=== PATIENT | female | born 1940 | race Caucasian/White ===

== ENCOUNTER 2022-04-29 18:32 | Emergency (ER) | payer MEDICARE ==
[2022-04-29] MEDS ORDERED: Sodium Chloride 0.9% 10 ML Syringe FLUSH PRN (19:04)
[2022-04-29] MEDS ORDERED: Sodium Chloride 0.9% 1,000 ML IV ONE (19:04)
[2022-04-29] MEDS ORDERED: Albuterol/Ipratropium 3.0-0.5 MG/3 ML Neb Soln NEB ONE (19:08)
[2022-04-29 19:42] LABS: CORONAVIRUS COVID-19 NAA NEGATIVE (NEGATIVE)
[2022-04-29] MEDS ORDERED: Iopamidol 612 MG/ML 100 ML Bottle IVPUSH ONE (21:22)
[2022-04-29] MEDS ORDERED: cefTRIAXone 1 GM in Sodium Chloride 0.9% 100 ML IV STA (22:29)
[2022-04-29] MEDS ORDERED: Azithromycin 500 MG in Sodium Chloride 0.9% 250 ML IV STA (22:30)
== END 2022-04-30 12:55 ==
LOC: JD.ED 18:32
DX: J18.9 Pneumonia, unspecified organism (principal); Z88.5 Allergy status to narcotic agent; Z88.6 Allergy status to analgesic agent; Z79.899 Other long term (current) drug therapy; Z20.822 Contact with and (suspected) exposure to COVID-19
CPT/HCPCS: 0241U; 36415; 71045; 71275; 80053; 81001; 83605; 83735; 83880; 84145; 84484; 85007; 85027; 85379; 85610; 85730; 86140; 87040; 93005; 94640; 96361; 96365; 96367; 99285; J0456; J0696; J3490; J7030; J7050; Q9967; J7620-GY

== ENCOUNTER 2023-02-24 11:30 | Inpatient (IN) | payer MEDICARE, OTHER ==
[2023-02-24] MEDS ORDERED: Albuterol/Ipratropium 3.0-0.5 MG/3 ML Neb Soln NEB ONE (12:02)
[2023-02-24] MEDS ORDERED: Sodium Chloride 0.9% 10 ML Syringe FLUSH PRN (12:02)
[2023-02-24 12:49] LABS: BASOPHILS ABSOLUTE AUTO 0.1 K/mm3 (0.0-0.2); BASOPHILS PERCENT AUTO 0.5 % (0.0-1.0); EOSINOPHILS PERCENT AUTO 0.1 % (0.0-6.0); HEMATOCRIT 38.8 % (37.0-47.0); HEMOGLOBIN 12.2 gm/dl (12.0-16.0); IMMATURE GRAN ABSOLUTE AUTO 0.09 K/mm3 (0.00-0.05); IMMATURE GRAN PERCENT AUTO 0.6 % (0.0-0.4); LYMPHOCYTES ABSOLUTE AUTO 1.1 K/mm3 (1.0-4.8); LYMPHOCYTES PERCENT AUTO 7.4 % (24.0-44.0); MEAN CORPUSCULAR HEMOGLOBIN 29.3 pg (28.0-32.0); MEAN CORPUSCULAR HGB CONC 31.4 g/dl (32.0-36.0); MEAN CORPUSCULAR VOLUME 93.3 fl (83.0-99.0); MEAN PLATELET VOLUME 11.7 fl (9.4-12.3); MONOCYTES ABSOLUTE AUTO 1.7 K/mm3 (0.0-0.8); MONOCYTES PERCENT AUTO 10.7 % (0.0-8.0); NEUTROPHILS ABSOLUTE AUTO 12.4 K/mm3 (1.8-7.7); NEUTROPHILS PERCENT AUTO 80.7 % (41.0-71.0); PLATELET COUNT,PLT 332 K/mm3 (150-400); RED BLOOD CELL COUNT 4.16 M/mm3 (4.10-5.30); WHITE BLOOD CELL COUNT,WBC 15.37 K/mm3 (3.9-11.3)
[2023-02-24 13:13] LABS: A/G RATIO 0.6 (1-2); ALBUMIN 2.9 g/dl (3.4-5.0); ANION GAP 13.6 (5-15); BILIRUBIN TOTAL 0.9 mg/dL (0.2-1.0); CALCIUM 9.3 mg/dL (8.5-10.1); EST CRCL DRUG DOSING (CG) 42.18 mL/min; POTASSIUM,K 3.6 mEq/L (3.5-5.1); PROTEIN TOTAL,TP 7.9 g/dl (6.4-8.2)
[2023-02-24 13:15] LABS: LACTIC ACID 1.7 mmol/L (0.4-2.0)
[2023-02-24 13:21] LABS: SLIDE REVIEW ABNORMAL SMEAR
[2023-02-24] MEDS ORDERED: Piperacillin/Tazobactam 4.5 GM in Sodium Chloride 0.9% 100 ML IV ONE (13:49)
[2023-02-24 13:50] LABS: INFLUENZA A NAA NEGATIVE (NEGATIVE)
[2023-02-24 13:56] LABS: C-REACTIVE PROTEIN 32.8 mg/dL (<1.0)
[2023-02-24] MEDS ORDERED: Sodium Chloride 0.9% 1,000 ML IV SCH (14:00)
[2023-02-24] MEDS ORDERED: Albuterol/Ipratropium 3.0-0.5 MG/3 ML Neb Soln NEB PRN (14:06)
[2023-02-24] MEDS ORDERED: Acetaminophen 325 MG Tab PO PRN (14:06)
[2023-02-24] MEDS ORDERED: Ondansetron 4 MG/2 ML SDV IV PRN (14:06)
[2023-02-24] MEDS: LORazepam 2 MG/ML SDV IVPUSH PRN (17:10)
[2023-02-24] MEDS ORDERED: Mirtazapine 30 MG Tab PO SCH (18:00)
[2023-02-24] MEDS: Piperacillin/Tazobactam 4.5 GM in Sodium Chloride 0.9% 100 ML IV SCH (21:25)
[2023-02-24] MEDS: LORazepam 0.5 MG Tab PO SCH (21:26)
[2023-02-24] MEDS: Sennosides/Docusate Sodium 50-8.6 MG Tab PO SCH (21:27)
[2023-02-24] MEDS: DULoxetine 30 MG Cap PO SCH (21:27)
[2023-02-25 06:36] LABS: HEMATOCRIT 34.7 % (37.0-47.0); HEMOGLOBIN 10.8 gm/dl (12.0-16.0); MEAN CORPUSCULAR HEMOGLOBIN 29.4 pg (28.0-32.0); MEAN CORPUSCULAR HGB CONC 31.1 g/dl (32.0-36.0); MEAN CORPUSCULAR VOLUME 94.6 fl (83.0-99.0); MEAN PLATELET VOLUME 11.9 fl (9.4-12.3); PLATELET COUNT,PLT 292 K/mm3 (150-400); RED BLOOD CELL COUNT 3.67 M/mm3 (4.10-5.30); WHITE BLOOD CELL COUNT,WBC 11.38 K/mm3 (3.9-11.3)
[2023-02-25] MEDS: Piperacillin/Tazobactam 4.5 GM in Sodium Chloride 0.9% 100 ML IV SCH (06:36)
[2023-02-25] MEDS ORDERED: Pantoprazole 40 MG Tab.CR PO SCH (07:00)
[2023-02-25 07:02] LABS: A/G RATIO 0.5 (1-2); ALBUMIN 2.3 g/dl (3.4-5.0); ANION GAP 10.5 (5-15); BILIRUBIN TOTAL 0.7 mg/dL (0.2-1.0); CALCIUM 8.5 mg/dL (8.5-10.1); CREATININE 0.8 mg/dL (0.55-1.02); EST CRCL DRUG DOSING (CG) 52.72 mL/min; POTASSIUM,K 3.5 mEq/L (3.5-5.1); PROTEIN TOTAL,TP 6.6 g/dl (6.4-8.2)
[2023-02-25 07:33] LABS: C-REACTIVE PROTEIN 28.4 mg/dL (<1.0)
[2023-02-25] MEDS ORDERED: D5 1/2 NS w/ 20 mEq/L KCl 1,000 ML IV SCH (08:15)
[2023-02-25] MEDS: LORazepam 0.5 MG Tab PO SCH (08:42)
[2023-02-25] MEDS: DULoxetine 30 MG Cap PO SCH (08:42)
[2023-02-25] MEDS: Sennosides/Docusate Sodium 50-8.6 MG Tab PO SCH (08:43)
[2023-02-25] MEDS ORDERED: QUEtiapine 25 MG Tab PO SCH (09:00)
[2023-02-25] MEDS ORDERED: Enoxaparin 40 MG/0.4 ML Syringe SUBCUT SCH (09:00)
[2023-02-25] MEDS ORDERED: Dextromethorphan HBr 30 MG/5 ML Susp ML PO PRN (11:06)
[2023-02-25] MEDS ORDERED: guaiFENesin 600 MG Tab.ER PO SCH (11:15)
[2023-02-25] MEDS ORDERED: fentaNYL 100 MCG/2 ML SDV IVPUSH PRN (11:41)
[2023-02-25] MEDS: LORazepam 2 MG/ML SDV IVPUSH PRN (13:23)
== END 2023-02-25 13:46 | disposition hospice, home (50) | DRG 871 ==
LOC: JD.ED 11:30 → JD.MS 13:51
PROVIDERS: ADMIT Internal Medicine; ATTEND Internal Medicine
DX: A41.9 Sepsis, unspecified organism (principal); J15.9 Unspecified bacterial pneumonia; J96.01 Acute respiratory failure with hypoxia; F02.C11 Dementia in other diseases classified elsewhere, severe, with agitation; E87.0 Hyperosmolality and hypernatremia; F02.C4 Dementia in other diseases classified elsewhere, severe, with anxiety; F02.C3 Dementia in other diseases classified elsewhere, severe, with mood disturbance; J32.9 Chronic sinusitis, unspecified; R09.02 Hypoxemia; Z51.5 Encounter for palliative care; R65.20 Severe sepsis without septic shock; S42.025A Nondisplaced fracture of shaft of left clavicle, initial encounter for closed fracture; F41.9 Anxiety disorder, unspecified; F02.80 Dementia in other diseases classified elsewhere, unspecified severity, without behavioral disturbance, psychotic disturbance, mood disturbance, and anxiety; F32.A Depression, unspecified; G30.9 Alzheimer's disease, unspecified; E03.9 Hypothyroidism, unspecified; Z86.16 Personal history of COVID-19; Z88.5 Allergy status to narcotic agent; Z88.8 Allergy status to other drugs, medicaments and biological substances; K21.9 Gastro-esophageal reflux disease without esophagitis; Z66 Do not resuscitate; Z79.899 Other long term (current) drug therapy; X58.XXXA Exposure to other specified factors, initial encounter
CPT/HCPCS: 36415; 70450; 70450-26; 71045; 71045-26; 80053; 83605; 84145; 85025; 85027; 86140; 87040; 87154; 87502-QW; 87641; 93005; 93010; 94640; 94760; 99285; A9270-GY; J1650; J2060; J2543; J3480; J3490; J7030; J7620-GY